=== PATIENT | female | born 1965 | race American Indian/Alaskan Native ===

== ENCOUNTER 2017-03-31 21:15 | Emergency (ER) | payer OTHER ==
[2017-03-31 21:21] VITALS: BP 125/91; PULSE 123; RESP 16; TEMP 98.1; O2SAT 98
--- NOTE | 2017-03-31 22:02 | ED PDOC ---
Arrival/HPI - General Chief Complaint: Hip Pain Time Seen by Provider: 03/31/17 21:34 Historian: Patient - History of Present Illness Narrative History of Present Illness (Text): 03/31/17 22:03 Ms. Mohini Andersen is a pleasant 51 yo lady with PMHx of PE in 2012, Fe deficiency anemia presents to the ED after slipping while stepping down stairs. She shares that she may have fallen down 5 steps. Direct impact to her sacrum- coccyx and impact to her R medial elbow. Proceeding the event, she had consumed 2.5 beers. She denies head trauma or loss of consciousness. She shares of pain at the sacrum radiating to superior gluteus. She also shares of L elbow pain. Pain is aggravated with movement and alleviated with rest, laying on her side. She denies lower extremity weakness, loss of function, numbness, tingling or loss of sensation. She denies saddle anesthesia. PCP: Dr. Betancourt at [facility] FamHx: Mom with HTN Surg: tubal ligation in 1986 LMP: 02/21/2017 Soc: 1/2 pack pd x 20 years; etoh: social 2.5 beers today; denies illicit drugs NKDA Meds: Currently not taking any medication. Last coumadin in 201203/31/17 22:13 Front/Back of Body, Lg (Color): 1 - sacral pain 2/2 fall; direct 2 - radiating pain 3 - abrasion 2/2 fall 2cm x1 cm Time/Duration: Prior to Arrival Symptom Onset: Sudden Symptom Course: Unchanged Quality: Stabbing, Cramping Severity Level: 6 Activities at Onset: Other (Slipped down stairs) Context: Walking, Tripped Past Medical History - Pulmonary Hx Pulmonary Embolism: Yes (2012) - Hematological/Oncological Hx Anemia: Yes (iron deficiency) - Psychiatric Hx Substance Use: No - Surgical History Hx Tubal Ligation: Yes Other/Comment: tubal ligation - Anesthesia Hx Anesthesia: Yes Hx Anesthesia Reactions: No Family/Social History Family/Social History: Hypertension Smoking Status: Heavy Smoker > 10 Cigarettes Daily (10 pack year history) Hx Alcohol Use: Yes (social. 2.5 beers today) Frequency of alcohol use: Socially Hx Substance Use: No Allergies/Home Meds Allergies/Adverse Reactions: Allergies No Known Allergies Allergy (Verified 03/31/17 21:17) Review of Systems - Physician Review All systems were reviewed & negative as marked: Yes - Review of Systems Musculoskeletal: Back Pain (sacral-coccyx), Other (L superior gluteal) Skin: Other (abrasion R medial elbow 2 x1 cm,) Physical Exam Vital Signs Reviewed: Yes Vital Signs Temp Pulse Resp BP Pulse Ox 03/31/17 21:17 98.1 F 123 H 16 125/91 H 98 Temperature: Afebrile Blood Pressure: Normal Pulse: Tachycardic Respiratory Rate: Normal Appearance: Positive for: Uncomfortable (2/2 pain) Pain Distress: Moderate Mental Status: Positive for: Alert and Oriented X 3 - Systems Exam Head: Present: Atraumatic Extroacular Muscles: Present: EOMI Conjunctiva: Present: Normal Mouth: Present: Moist Mucous Membranes Respiratory/Chest: Present: Clear to Auscultation, Good Air Exchange. No: Accessory Muscle Use, Wheezes Cardiovascular: Present: Regular Rate and Rhythm, Normal S1, S2, Tachycardic Abdomen: Present: Normal Bowel Sounds. No: Tenderness Back: Present: Paraspinal Tenderness (3 cm erythematous in sacral area. non ulcerations, no break in epidermis. no lesions present. ) Upper Extremity: Present: Normal ROM, Capillary Refill < 2s, Other (abrasion 2cm x 1 cm on medial aspect of R elbow.) Lower Extremity: Present: Normal Inspection, Normal ROM (strength 5/5; normal sensation. ). No: CALF TENDERNESS Neurological: Present: GCS=15, CN II-XII Intact, Speech Normal, Normal Sensory Function Skin: Present: Warm Psychiatric: Present: Alert, Oriented x 3, Normal Insight, Normal Concentration , Normal Affect Medical Decision Making - Lab Interpretations Lab Results: 03/31/17 22:20 03/31/17 22:20 Lab Results 03/31/17 22:20: WBC 6.7, RBC 4.42, Hgb 13.1, Hct 39.6, MCV 89.7, MCH 29.6, MCHC 33.0, RDW 14.2, Plt Count 282, MPV 8.7, Neut % (Auto) 47.2 L, Lymph % (Auto) 39.9, Coke % (Auto) 9.4, Eos % (Auto) 2.9, Baso % (Auto) 0.6, Neut # 3.2, Lymph # 2.7, Coke # 0.6, Eos # 0.2, Baso # 0.0 03/31/17 22:20: Sodium 141, Potassium 3.8, Chloride 108 H, Carbon Dioxide 22, Anion Gap 15, BUN 10, Creatinine 0.8, Est GFR ( Amer) > 60, Est GFR (Non- Af Amer) > 60, Random Glucose 102, Calcium 9.0 - RAD Interpretation Radiology Orders: 03/31/17 21:55 LUMBAR SPINE COMPLETE [RAD] Stat ELBOW RIGHT 3 VIEWS ROUTINE [RAD] Stat SACRUM &/or COCCYX (MIN 2VW) [RAD] Stat - Medication Orders Current Medication Orders: Ibuprofen (Motrin Tab) 600 mg PO Q6 PRN PRN Reason: Pain, moderate (4-7) Last Admin: 03/31/17 22:27 Dose: 600 mg [facility] Pain Assessment Document 03/31/17 22:27 JS (Rec: 03/31/17 22:28 [id number]) Pain Reassessment Is this a pain reassessment? No Sleep Is patient sleeping during reassessment? No Presence of Pain Presence of Pain Yes Pain Scale Used Pain Scale Used Numeric Location Left, Right or Bilateral Left Upper or Lower Lower Pain Location Body Site Back Hip Description Description Intermittent Intensity of Pain at present 7 Acceptable Level of Pain 3 Pain Behavior Guarding Aggravating Factors Changing Position Exercise/Activity Walking Alleviating Factors/Management Medication Techniques Alleviating Factors Medication Re-Assess: [facility] Pain Reassessment Document 03/31/17 23:27 JS (Rec: 04/01/17 00:25 JS [id number]) Sleep Is patient sleeping during reassessment? No Pain Reassessment Pain Scale Used Numeric Pain Scale Level 2 Left, Right or Bilateral Left Upper or Lower Lower Pain Location Body Site Back Hip Description Intermittent Alleviating Techniques Medication Disposition/Present on Arrival - Present on Arrival Any Indicators Present on Arrival: No History of DVT/PE: Yes History of Uncontrolled Diabetes: No Urinary Catheter: No History of Decub. Ulcer: No - Disposition Have Diagnosis and Disposition been Completed?: Yes Diagnosis: Fall from slipping Disposition Time: 12:30 Patient Problems: Current Active Problems Problem Status Onset Fall from slipping Acute Condition: IMPROVED Discharge Instructions (ExitCare): Fall Prevention for Older Adults (ED) Additional Instructions: follow up with your primary doctor in 1-2 days return to the ED with any worsening or concerning symptoms Referrals: [facility] [Outside] [facility] [Outside] Forms: [facility] (B[place]ian)
[2017-03-31 22:31] LABS: BASO % 0.6 % (0.0-2.0); EOS # 0.2 K/uL (0.0-0.7); EOS % 2.9 % (0.0-4.0); HEMATOCRIT 39.6 % (34.0-47.0); LYMPH # 2.7 K/uL (1.0-4.3); LYMPH % 39.9 % (20.0-40.0); MEAN CELL VOLUME 89.7 fl (81.0-99.0); MEAN CORPUSCULAR HEMOGLOBIN 29.6 pg (27.0-31.0); MEAN PLATELET VOLUME 8.7 fl (7.2-11.7); MONO # 0.6 K/uL (0.0-0.8); MONO % 9.4 % (0.0-10.0); NEUT # 3.2 K/uL (1.8-7.0); NEUT % 47.2 % (50.0-75.0); NRBC % 0.2 % (0.0-0.0); RED CELL DISTRIBUTION WIDTH 14.2 % (11.5-14.5); WHITE BLOOD COUNT 6.7 K/uL (4.8-10.8)
[2017-03-31 22:40] LABS: BLOOD UREA NITROGEN 10 mg/dl (7-17); CARBON DIOXIDE 22 mmol/L (22-30); CHLORIDE 108 mmol/L (98-107); GFR AFRICAN-AMERICAN > 60; GLUCOSE,RANDOM 102 mg/dL (65-105); POTASSIUM 3.8 MMOL/L (3.6-5.0); SODIUM 141 mmol/l (132-148)
--- NOTE | 2017-04-01 00:05 | RAD ---
EXAM: XR Sacrum and Coccyx, 2 or more Views CLINICAL HISTORY: 51 years old, female; Injury or trauma; Fall; Initial encounter; Blunt trauma (contusions or hematomas) TECHNIQUE: Frontal and lateral views of the sacrum and coccyx. COMPARISON: No relevant prior studies available. FINDINGS: Sacrum/coccyx: No displaced fracture. Soft tissues: Unremarkable. IMPRESSION: 1. No displaced fracture.
--- NOTE | 2017-04-01 00:07 | RAD ---
EXAM: XR Lumbar Spine, 4 or 5 Views CLINICAL HISTORY: 51 years old, female; Injury or trauma; Fall; Initial encounter; Blunt trauma (contusions or hematomas) TECHNIQUE: Frontal, lateral and oblique views of the lumbar spine. COMPARISON: No relevant prior studies available. FINDINGS: Vertebrae: No acute fracture. Normal alignment. Disc spaces: No significant narrowing. Soft tissues: Unremarkable. IMPRESSION: 1. No fracture. 2. If back pain persists, consider MRI for further evaluation.
--- NOTE | 2017-04-01 10:04 | RAD ---
PROCEDURE: Radiographs of the right elbow. HISTORY: fall COMPARISON: No prior. FINDINGS: BONES: Normal. No fracture. JOINTS: Normal. No osteoarthritis. SOFT TISSUES: Normal. JOINT EFFUSION: None. OTHER FINDINGS: None. IMPRESSION: Unremarkable radiographs of the right elbow.
== END 2017-04-01 00:45 | disposition home or self-care (01) ==
LOC: H.ER 21:15
DX: S50.311A Abrasion of right elbow, initial encounter (principal); M54.5 Low back pain; M53.3 Sacrococcygeal disorders, not elsewhere classified; W01.0XXA Fall on same level from slipping, tripping and stumbling without subsequent striking against object, initial encounter; Y92.89 Other specified places as the place of occurrence of the external cause; Z86.711 Personal history of pulmonary embolism